=== PATIENT | female | born 2000 | race Caucasian/White ===

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

== ENCOUNTER → 2019-02-02 | Outpatient (CLI) | payer OTHER | LOC: GMAL 10:41 | PROVIDERS: ATTEND Family Medicine | DX: D50.8 Other iron deficiency anemias (principal); Z79.899 Other long term (current) drug therapy ==

== ENCOUNTER → 2019-08-24 | Outpatient (CLI) | payer OTHER | LOC: GMAL 16:47 | PROVIDERS: ATTEND Family Medicine | DX: D51.8 Other vitamin B12 deficiency anemias (principal); D50.8 Other iron deficiency anemias; R53.83 Other fatigue; E55.9 Vitamin D deficiency, unspecified ==